=== PATIENT | female | born 1945 | race Caucasian/White ===

== ENCOUNTER 2024-01-22 19:11 | Observation (INO) | payer OTHER ==
[2024-01-22 20:13] LABS: Absolute Lymphocytes (CBC) 0.7 K/uL (0.7-4.9); Absolute Monocytes 0.7 K/uL (0.1-1.3); Absolute Neutrophil 10.2 K/uL (1.8-8.0); Basophils % 0.4 % (0-1.3); Eosinophils % 0.4 % (0-4.4); Hematocrit 32.7 % (36.0-45.0); Hemoglobin 10.7 g/dL (12.0-15.0); Lymphocytes % 6.3 % (15.3-44.8); MCHC 32.7 g/dL (32.0-36.0); MCV 91.9 fL (80-100); MPV 8.3 fL (7.6-11.3); Monocytes % 5.6 % (3.3-12.3); Neutrophils % 87.3 % (41.7-73.7); Platelets 169 thou/uL (152-406); RBC Red Blood Cell Count 3.56 M/uL (3.86-4.86); Red Cell Distribution Width 13.9 % (12.1-15.2)
[2024-01-22 20:20] LABS: Potassium 4.4 mEq/L (3.5-5.1); Sodium Level 140 mEq/L (136-145)
[2024-01-22 20:22] LABS: Anion Gap 7.4 mEq/L (5.0-15.0); Bicarbonate 28 mEq/L (21-32)
[2024-01-22 20:29] LABS: Alkaline Phosphatase 92 U/L (45-117)
[2024-01-22] MEDS ORDERED: NA CHLORIDE 0.9% 1,000 ML ONE (20:30)
[2024-01-22] MEDS ORDERED: ONDANSETRON 4 MG/2 ML VIAL ONE (20:30)
[2024-01-22] MEDS ORDERED: ACETAMINOPHEN 325 MG TABLET ONE (20:44)
[2024-01-22 21:33] LABS: ALT/SGPT 15 U/L (13-56); AST/SGOT 16 U/L (15-37); BUN Blood Urea Nitrogen 32 mg/dL (7-18); Bilirubin Total 0.3 mg/dL (0.2-1.0); Glomerular Filtration Rate 30 ml/min (=/>90); Glucose Level 118 mg/dL (74-106); Lipase 40 U/L (13-75); Protein, Total 7.3 g/dL (6.4-8.2)
[2024-01-22 21:34] LABS: Albumin 3.2 g/dL (3.4-5.0)
[2024-01-22 21:41] LABS: SARS-CoV-2 Antigen CONTROL BLUE LINE VIS/BG OK; SARS-CoV-2 Antigen Rapid Res Negative (Negative)
--- NOTE | 2024-01-23 00:52 | ER ---
Nurse's Notes [facility] Name: Fabby Graham Age: 78 yrs Sex: Female : 1945 Arrival Date: 01/22/2024 Time: 19:11 Bed 18 Private MD: Diagnosis: Vomiting;Diarrhea, unspecified;Acute kidney failure, unspecified Presentation: 01/21 19:25 Chief complaint: EMS states: 78 year old female coming from [facility] ha1 reports nausea, vomiting, and diarrhea. Symptoms started 45 minutes ago. Coronavirus screen: At this time, unable to obtain information related to travel outside the [place] Ebola Screen: No symptoms or risks identified at this time. Initial Sepsis Screen: Does the patient meet any 2 criteria? No. Patient's initial sepsis screen is negative. Does the patient have a suspected source of infection? No. Patient's initial sepsis screen is negative. Risk Assessment: Do you want to hurt yourself or someone else? Patient reports no desire to harm self or others. Onset of symptoms was January 22, 2024. 19:25 Method Of Arrival: EMS: [facility] ha1 19:25 Acuity: JESUSITA 3 ha1 Triage Assessment: 19:25 General: Appears comfortable, Behavior is calm, cooperative. Pain: Denies pain. Neuro: ha1 Level of Consciousness is awake, alert, obeys commands, Oriented to person. Cardiovascular: Capillary refill < 3 seconds Patient's skin is warm and dry. Respiratory: Airway is patent Respiratory effort is even, unlabored, Respiratory pattern is regular, symmetrical. GI: Abdomen is flat, non-distended, Bowel sounds present X 4 quads. Reports nausea, vomiting. : No signs and/or symptoms were reported regarding the genitourinary system. Derm: Skin is pink, warm \T\ dry. Musculoskeletal: Circulation, motion, and sensation intact. Range of motion: intact in all extremities. Historical: - Allergies: 19:29 No Known Allergies; ha1 - PMHx: 19:31 Dementia; ha1 20:30 Hypercholesterolemia; chronic kidney disease stage 3; Depressive disorder; Hypertensive ha1 disorder; Alzheimer's disease; - Immunization history:: Adult Immunizations unknown. - Infectious Disease History:: Denies. - Social history:: Smoking status: unknown. Screenin:[facility] Fall Risk Assessment (Adult) History of falling in the last 3 months, ha1 including since admission No falls in past 3 months (0 pts) Confusion or Disorientation Yes (5 pts) Intoxicated or Sedated No (0 pts) Impaired Gait No (0 pts) Mobility Assist Device Used Yes (1 pt) Altered Elimination Yes (1 pt) Score/Fall Risk Level 3 or more points = High Risk Oriented to surroundings, Maintained a safe environment, Educated pt \T\ family on fall prevention, incl call for assistance when getting out of bed, Hourly rounding (assess needs \T\ fall precautionary measures) done. Abuse screen: Denies threats or abuse. Denies injuries from another. Nutritional screening: No deficits noted. Tuberculosis screening: No symptoms or risk factors identified. Assessment: 19:25 Reassessment: SEE TRIAGE ASSESSMENT. ha1 20:55 Reassessment: Steven Dumont emergency contact [phone]. ha1 21:50 Reassessment: EYES CLOSED. Respiratory: Airway is patent Respiratory effort is even, ha1 unlabored, Respiratory pattern is regular, symmetrical. 22:50 Reassessment: EYES CLOSED. Respiratory: Airway is patent Respiratory effort is even, ha1 unlabored, Respiratory pattern is regular, symmetrical. 23:50 Reassessment: Patient and/or family updated on plan of care and expected duration. Pain ha1 level reassessed. 01/22 00:45 Reassessment: EYES CLOSED. Respiratory: Airway is patent Respiratory effort is even, ha1 unlabored, Respiratory pattern is regular, symmetrical. Vital Signs: 01/21 19:25 BP 95 / 81; Pulse 60; Resp 17 S; Temp 98.2(O); Pulse Ox 97% on R/A; Weight 43.09 kg; ha1 Height 4 ft. 11 in. ; 20:44 BP 97 / 44; Pulse 57; Resp 17; Temp 99.7(O); Pulse Ox 97% on R/A; ha1 21:40 BP 116 / 44; Pulse 55; Resp 17 S; Pulse Ox 97% on R/A; ha1 22:40 BP 116 / 56; Pulse 61; Resp 17 S; Pulse Ox 97% on R/A; ha1 23:49 BP 123 / 58; Pulse 57; Resp 17 S; Temp 97.6(T); Pulse Ox 96% on R/A; ha1 01/22 00:40 BP 151 / 54; Pulse 60; Resp 17 S; Pulse Ox 96% on R/A; ha1 02:00 BP 145 / 54; Pulse 59; Resp 17 S; Pulse Ox 93% on R/A; ha1 01/21 19:25 Body Mass Index 19.19 (43.09 kg, 149.86 cm) ha1 ED Course: 01/21 19:25 Patient arrived in ED. ha1 19:25 Ann Baptiste, RN is Primary Nurse. ha1 19:25 Patient has correct armband on for positive identification. Placed in gown. Bed in low ha1 position. Call light in reach. Side rails up X2. 19:25 Client placed on continuous cardiac and pulse oximetry monitoring. NIBP monitoring ha1 applied. 19:25 Arm band placed on right wrist. ha1 19:29 Triage completed. ha1 19:46 Asunc[facility]C [facility] kb 19:46 Galdino Polanco MD is Attending Physician. kb 20:02 CBC with Diff Sent. ha1 20:02 CMP Sent. ha1 20:02 Lipase Sent. ha1 20:30 Inserted saline lock: 22 gauge in right forearm, using aseptic technique. Blood oe collected. Flushed with 10 mL NS. 21:20 Door closed. Warm blanket given. Pillow given. ha1 21:24 SARS-COV-2 Antigen Rapid Sent. vk 21:24 Flu Sent. vk 21:24 COVID swab sent to lab. Flu and/or RSV swab sent to lab. vk 22:20 Abdomen In Process Unspecified. EDMS 01/22 00:23 Chest Single View XRAY In Process Unspecified. EDMS 00:51 Colin Carter MD is Hospitalizing Provider. kb 02:00 No provider procedures requiring assistance completed. ha1 02:00 Patient admitted, IV remains in place. ha1 02:00 Provided Education on: need for admit . ha1 03:00 Straight cath inserted, using sterile technique, 14 Fr. Specimen obtained. Returned ha1 joy urine. Patient tolerated well. Administered Medications: 01/21 20:20 Drug: NS 0.9% IV 1000 ml IV at 1 bolus Per protocol; 1000 mL bolus Route: IV; Rate: 1 ha1 bolus; Site: right forearm; 22:00 Follow up: Response: No adverse reaction; IV Status: Completed infusion; IV Intake: ha1 1000ml 20:20 Drug: Ondansetron IVP 4 mg IVP once; over 2 minutes Route: IVP; Site: right forearm; ha1 20:45 Follow up: Response: No adverse reaction ha1 20:51 Drug: Acetaminophen PO 650 mg PO once Route: PO; ha1 21:49 Follow up: Response: No adverse reaction; Temperature is decreased ha1 Medication: 01/22 02:00 VIS not applicable for this client. ha1 Intake: 01/21 22:00 IV: 1000ml; Total: 1000ml. ha1 Outcome: 01/22 00:51 Decision to Hospitalize by Provider. kb 02:00 Admitted to ER Hold. Please see [facility] for further documentation. ha1 02:00 Condition: stable 02:00 Instructed on the need for admit, 12:16 Patient left the ED. ld1 Signatures: Dispatcher [employer] EDAsuncion Appiah, AYDEEC TRACK LAYER-Milan Martin Lauren, SUNDAY RN 1 Ann Baptiste, SUNDAY RN 1 Juanita Bernal Corrections: (The following items were deleted from the chart) 01/21 22:18 22:18 In radiology for Abdomen Pelvis W Con+CT.RAD.SILVANO. EDNE EDMS 23:51 23:49 BP 123 / 58; Pulse 57bpm; Resp 17bpm; Spontaneous; Pulse Ox 96% RA; ha1 ha1 01/22 02:20 01/21 20:44 Temp 99.7F Oral; ha1 1 01/22 03:37 01/21 19:25 BP 95 / 81; Pulse 60bpm; Resp 17bpm; Spontaneous; Pulse Ox 97% RA; Temp ha1 98.2F Oral; 43.09 kg; Height 4 ft. 11 in.; BMI: 19.1; ha1
--- NOTE | 2024-01-23 00:52 | EDPHYS ---
Physician Documentation [facility] Name: Fabby Graham Age: 78 yrs Sex: Female : 1945 Arrival Date: 01/22/2024 Time: 19:11 Bed 18 Private MD: ED Physician Galdino Polanco HPI: 01/22 00:44 This 78 yrs old Female presents to ER via EMS with complaints of n/v/d. 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 Pt has no complaints. Pt is at baseline mentation per EMS, awake, alert and oriented to person only. . Historical: - Allergies: 01/21 19:29 No Known Allergies; ha1 - PMHx: 19:31 Dementia; ha1 20:30 Hypercholesterolemia; chronic kidney disease stage 3; Depressive disorder; Hypertensive ha1 disorder; Alzheimer's disease; - Immunization history:: Adult Immunizations unknown. - Infectious Disease History:: Denies. - Social history:: Smoking status: unknown. ROS: 01/22 00:43 Constitutional: As per HPI kb Exam: 00:43 Constitutional: This is a well developed, well nourished patient who is awake, alert, kb and in no acute distress. Head/Face: Normocephalic, atraumatic. ENT: Moist Mucous membranes Cardiovascular: Regular rate Respiratory: Respirations even and unlabored. No increased work of breathing. Talking in full sentences Abdomen/GI: Soft, non-tender. No distention Skin: Warm, dry with normal turgor. Normal color. MS/ Extremity: Pulses equal, no cyanosis. Neurovascular intact. Full, normal range of motion. 00:43 Neuro: Exam negative for acute changes, Orientation: to person, Vital Signs: 01/21 19:25 BP 95 / 81; Pulse 60; Resp 17 S; Temp 98.2(O); Pulse Ox 97% on R/A; Weight 43.09 kg; ha1 Height 4 ft. 11 in. ; 20:44 BP 97 / 44; Pulse 57; Resp 17; Temp 99.7(O); Pulse Ox 97% on R/A; ha1 21:40 BP 116 / 44; Pulse 55; Resp 17 S; Pulse Ox 97% on R/A; ha1 22:40 BP 116 / 56; Pulse 61; Resp 17 S; Pulse Ox 97% on R/A; ha1 23:49 BP 123 / 58; Pulse 57; Resp 17 S; Temp 97.6(T); Pulse Ox 96% on R/A; 1 01/22 00:40 BP 151 / 54; Pulse 60; Resp 17 S; Pulse Ox 96% on R/A; 1 02:00 BP 145 / 54; Pulse 59; Resp 17 S; Pulse Ox 93% on R/A; 1 01/21 19:25 Body Mass Index 19.19 (43.09 kg, 149.86 cm) [facility] MDM: 01/21 19:46 Patient medically screened. 01/22 00:49 Differential diagnosis: Nonspecific abd pain, viral gastroenteritis, dehydration, kb abnormal electrolytes, ARF. Data reviewed: vital signs, nurses notes. Consideration of Admission/Observation Patient was admitted/placed on observation. Escalation of care including admission/observation considered. Management of patient was discussed with the following: Hospitalist: Dr Carter accepts pt for admission. Historians other than the Patient: EMS: [email or web address]. Counseling: I had a detailed discussion with the patient and/or guardian regarding the historical points, exam findings, and any diagnostic results supporting the discharge/admit diagnosis, lab results, radiology results, the need for further work-up and treatment in the hospital. 01/21 19:46 Order name: CBC with Diff; Complete Time: 20:17 kb 01/21 19:46 Order name: CMP; Complete Time: 21:40 kb 01/21 19:46 Order name: Lipase; Complete Time: 21:40 kb 01/21 19:46 Order name: Urinalysis w/ reflexes kb 01/21 20:38 Order name: Flu; Complete Time: 21:46 kb 01/21 20:38 Order name: SARS-COV-2 Antigen Rapid; Complete Time: 21:42 kb 01/22 01:24 Order name: Creatine Phosphokinase EDSD 01/22 01:24 Order name: CBC with Automated Diff EDSD 01/22 01:24 Order name: CBC with Automated Diff EDSD 01/22 01:24 Order name: Comprehensive Metabolic Panel [facility] 01/22 01:24 Order name: Comprehensive Metabolic Panel [facility] 01/21 22:20 Order name: Abdomen EDMS 01/21 23:22 Order name: Chest Single View XRAY kb 01/21 19:46 Order name: IV Saline Lock; Complete Time: 20:02 kb 01/21 19:46 Order name: Labs collected and sent; Complete Time: 20:02 kb 01/21 23:37 Order name: PO challenge; Complete Time: 23:45 kb 01/21 23:37 Order name: Vital Signs; Complete Time: 23:49 kb Administered Medications: 01/21 20:20 Drug: NS 0.9% IV 1000 ml IV at 1 bolus Per protocol; 1000 mL bolus Route: IV; Rate: 1 ha1 bolus; Site: right forearm; 22:00 Follow up: Response: No adverse reaction; IV Status: Completed infusion; IV Intake: ha1 1000ml 20:20 Drug: Ondansetron IVP 4 mg IVP once; over 2 minutes Route: IVP; Site: right forearm; ha1 20:45 Follow up: Response: No adverse reaction ha1 20:51 Drug: Acetaminophen PO 650 mg PO once Route: PO; ha1 21:49 Follow up: Response: No adverse reaction; Temperature is decreased ha1 Disposition Summary: 01/23/24 00:51 Hospitalization Ordered Notes: Hospitalization Status: Observation kb Provider: Colin Carter Condition: Stable kb Problem: new kb Symptoms: are unchanged kb Bed/Room Type: Standard kb Location: Telemetry/MedSurg (observation)(01/23/24 11:28) bd Room Assignment: 222(01/23/24 11:28) bd Diagnosis - Vomiting kb - Diarrhea, unspecified kb - Acute kidney failure, unspecified kb Forms: - Medication Reconciliation Form kb - SBAR form kb - Leadership Thank You Letter kb Signatures: Dispatcher [employer] EDMS Asuncion Long, RISK CONSULTANT-C RISK CONSULTANT-Sherri Layne Shelby, RN RN ss Ann Baptiste RN RN ha1 Corrections: (The following items were deleted from the chart) 20:38 20:38 Influenza Screen (A \T\ B)+BA.LAB.BRZ ordered. EDMS EDMS 20:38 20:38 SARS-COV-2 Antigen Rapid+I.LAB.BRZ ordered. EDMS EDMS 22:18 19:47 Abdomen Pelvis W Con+CT.RAD.BRZ ordered. EDMS EDMS 01/22 02:07 00:51 Telemetry/MedSurg (observation) kb ss 00:51 kb ss 02:07 [facility] ER HOLD bd 02:07 ERHOLD- bd
--- NOTE | 2024-01-23 01:16 | P.HP ---
Certification for Inpatient Patient admitted to: Observation With expected LOS: <2 Midnights Patient will require the following post-hospital care: None Practitioner: I am a practitioner with admitting privileges, knowledge of patient current condition, hospital course, and medical plan of care. Services: Services provided to patient in accordance with Admission requirements found in Title 42 Section 412.3 of the Code of Federal Regulations Patient History Date of Service: 01/23/24 Reason for admission: Nausea vomiting History of Present Illness: 78-year-old female with past medical history of hypertension, dementia, CKD STAGE 3 but unknown basleine creatinine , HLD , [facility] resident at [facility] who was brought in from the [facility] today because of recurrent nausea vomiting. Patient is confused and only oriented to name calling. On arrival in the emergency room for further history was unable to be obtained from her. Vital signs shows mild elevated temp of 99, blood pressure was borderline low at 96/41 but nontachycardic. Chest x-ray shows mild atelectasis, CT of the abdomen and pelvics shows possible pneumonia at the right base but no other intra-abdominal pathology, urinalysis pending, CBC shows WBC of 11 with 87% neutrophilia, BMP shows elevation in creatinine of 1.7, no previous to compare. Urinalysis pending. Patient was given IV fluid bolus and blood pressure improved from systolic of 90 to 120. Patient has been admitted for acute renal failure Allergies No Known Allergies Allergy (Unverified 01/23/24 03:38) Home medications list reviewed: No - Past Medical/Surgical History Has patient received pneumonia vaccine in the past: No -: Hypertension -: Dementia -: CKD-3 -: HLD - Social History Smoking Status: Never smoker Smoking therapy provided: No Patient receptive to therapy: No Alcohol use: No CD- Drugs: No Place of Residence: Custodial Review of Systems is unable to be obtained (Dementia) Physical Examination - Physical Exam General: Alert, Oriented x1 HEENT: Atraumatic, Normocephalic, PERRLA Neck: Supple, 2+ carotid pulse no bruit, JVD not distended Respiratory: Clear to auscultation bilaterally, Normal air movement Cardiovascular: No edema, Regular rate/rhythm Gastrointestinal: Normal bowel sounds, Soft and benign, Non-distended, No ascites, No tenderness Integumentary: No rashes, No breakdown Neurological: Normal strength at 5/5 x4 extr, Sensation intact, Cranial nerves 3-12 intact, Dementia - Studies Laboratory Data (last 24 hrs) 01/22/24 01/22/24 20:03 20:03 WBC 11.70 H Hgb 10.7 L Hct 32.7 L Plt Count 169 Sodium 140 Potassium 4.4 BUN 32 H Creatinine 1.73 H Glucose 118 H Total Bilirubin 0.3 AST 16 ALT 15 Alkaline Phosphatase 92 Lipase 40 Microbiology Data (last 24 hrs): 01/22/24 21:14 Nasopharnyx Influenza Type A Antigen Screen - Final 01/22/24 21:14 Nasopharnyx Influenza Type B Antigen Screen - Final Assessment and Plan - Problems (Diagnosis) (1) Dementia Current Visit: Yes Status: Acute (2) Sepsis Current Visit: Yes Status: Acute (3) Acute renal failure Current Visit: Yes Status: Acute - Plan Impression Acute kidney injury Presumed UTI Septic shock Leukocytosis Dementia ckd-3 Plan Will admit patient to observation Start gentle IV fluid with NS Follow creatinine trend Since unknwn baseline cr , NH unable to provide , follow creatinine trend with hydration Hold lsinopril for now Start empirical antibiotics with cefepime Follow urinalysis Monitor blood pressure with IV fluid Ativan as needed agitation Resume home meds after med reconciliation Lovenox for DVT prophylaxis full code per [place] records Discharge Plan: Custodial Plan to discharge in: 48 Hours - Advance Directives Does patient have a Living Will: No Does patient have a Durable POA for Healthcare: No
[2024-01-23] MEDS ORDERED: ALBUTEROL 2.5 MG/3 ML NEB SOL NEB PRN (01:17)
[2024-01-23] MEDS ORDERED: MORPHINE 2 MG/ML SYR IV PRN (01:17)
[2024-01-23] MEDS ORDERED: ONDANSETRON 4 MG/2 ML VIAL IV PRN (01:17)
[2024-01-23] MEDS ORDERED: ACETAMINOPHEN 500 MG TAB PO PRN (01:17)
[2024-01-23] MEDS ORDERED: LORAZEPAM 0.5 MG TABLET PO PRN (01:19)
[2024-01-23] MEDS: NA CHLORIDE 0.9% 1,000 ML IV SCH (02:00)
[2024-01-23 03:36] VITALS: BMI 19.1
[2024-01-23] MEDS ORDERED: NA CHLORIDE 0.9% 1,000 ML ONE (04:11)
[2024-01-23 04:19] LABS: Specific Gravity 1.019 (1.005-1.030); Sqamous Epithelial <5 /HPF (None Seen); Urine Bacteria <20 /HPF (<20); Urine Bilirubin NEGATIVE (Negative); Urine Blood Negative (Negative); Urine Clarity Clear (Clear); Urine Color Yellow (Yellow); Urine Culture Reflex Order NOT NEEDED; Urine Glucose NEGATIVE (Negative); Urine Ketones NEGATIVE (Negative); Urine Microscopic Reflex YN ORDER UMIC; Urine Mucus Slight /HPF (None Seen); Urine Nitrite NEGATIVE (Negative); Urine Protein TRACE (Negative); Urine RBC None Seen /HPF (None Seen); Urine Urobilinogen Normal (Normal); Urine WBC <5 /HPF (<5); Urine pH 5.5 (5.0-7.0)
[2024-01-23] MEDS ORDERED: ASPIRIN 81 MG CHEWABLE TABLET ONE (08:59)
[2024-01-23] MEDS: ENOXAPARIN 30 MG/0.3 ML SQ SCH (09:00)
[2024-01-23] MEDS: DIVALPROEX NA 125 MG CAP PO SCH (09:00)
[2024-01-23] MEDS: MEMANTINE HCL 10 MG TABLET PO SCH (09:00)
[2024-01-23] MEDS: CEFEPIME 1 GM in NA CHLORIDE 0.9% 100 ML IV SCH (09:00)
[2024-01-23] MEDS ORDERED: ENOXAPARIN 30 MG/0.3 ML SQ ONE (09:00)
[2024-01-23] MEDS ORDERED: NA CHLORIDE 0.9% 100 ML ONE (09:00)
[2024-01-23] MEDS ORDERED: CEFEPIME 1 GM/VIAL ONE (09:00)
[2024-01-23] MEDS: FAMOTIDINE 20 MG TAB PO SCH (09:00)
[2024-01-23] MEDS: QUETIAPINE 25 MG TAB PO SCH (09:00)
[2024-01-23] MEDS ORDERED: DIVALPROEX DR 250 MG TAB PO ONE (09:00)
[2024-01-23] MEDS: ASPIRIN EC 81 MG TAB PO SCH (09:00)
[2024-01-23] MEDS ORDERED: LORAZEPAM 1 MG TABLET ONE (09:16)
[2024-01-23] MEDS: LORAZEPAM 1 MG TABLET PO PRN (09:21)
[2024-01-23 22:18] VITALS: O2SAT 94
[2024-01-24 06:42] LABS: Absolute Eosinophils 0.2 K/uL (0-0.5); Absolute Lymphocytes (CBC) 1.2 K/uL (0.7-4.9); Absolute Monocytes 0.8 K/uL (0.1-1.3); Absolute Neutrophil 4.3 K/uL (1.8-8.0); Basophils % 0.7 % (0-1.3); Eosinophils % 2.3 % (0-4.4); Hematocrit 33.2 % (36.0-45.0); Hemoglobin 10.6 g/dL (12.0-15.0); Lymphocytes % 19.2 % (15.3-44.8); MCH 29.7 pg (27.0-35.0); MCV 92.9 fL (80-100); MPV 8.6 fL (7.6-11.3); Monocytes % 11.9 % (3.3-12.3); Neutrophils % 65.9 % (41.7-73.7); Nucleated Red Blood Cells % 0.2 % (0-0); Platelets 131 thou/uL (152-406); RBC Red Blood Cell Count 3.57 M/uL (3.86-4.86); Red Cell Distribution Width 13.7 % (12.1-15.2)
[2024-01-24 06:57] LABS: AST/SGOT 11 U/L (15-37); Albumin 2.8 g/dL (3.4-5.0); Albumin/Globulin Ratio 0.7 (1.1-1.8); Alkaline Phosphatase 89 U/L (45-117); BUN Blood Urea Nitrogen 19 mg/dL (7-18); Bicarbonate 28 mEq/L (21-32); Bilirubin Total 0.4 mg/dL (0.2-1.0); Globulin 3.9 g/dL (2.3-3.5); Glomerular Filtration Rate 43 ml/min (=/>90); Glucose Level 72 mg/dL (74-106); Protein, Total 6.7 g/dL (6.4-8.2); Sodium Level 141 mEq/L (136-145)
[2024-01-24 06:58] LABS: ALT/SGPT < 14 U/L (13-56)
--- NOTE | 2024-01-24 10:01 | RAD REPORT ---
EXAM DESCRIPTION: RAD - Chest Single View - 01/23/2024 12:21 am CLINICAL HISTORY: 78 years Female MALAISE TECHNIQUE: One view of the chest. COMPARISON: No prior exams provided for comparison. FINDINGS: There is elevation of the left hemidiaphragm with left basilar atelectasis versus infiltra te. Increased interstitial markings in both lungs consistent with chronic lung disease. No pleural ef fusion or pneumothorax. Mild prominence of the cardiomediastinal silhouette with aortic atherosclerosis. No acute osseous les ion. IMPRESSION: Elevation of the left hemidiaphragm with left basilar atelectasis versus infiltrate. Chr onic lung disease. Electronically signed by: Cira Fernandez MD 01/23/2024 12:37 AM CDT RP Due to temporary technical issues with the PACS/Fluency reporting system, reports are being signed by the in house radiologist without review as a courtesy to ensure prompt reporting. The interpreting r adiologist is fully responsible for the content of the report.
--- NOTE | 2024-01-24 10:02 | RAD REPORT ---
EXAM DESCRIPTION: CT - Abdomen Pelvis Wo Contrast - 01/23/2024 6:51 am CLINICAL HISTORY: Abdominal pain. COMPARISON: None. TECHNIQUE: CT ABDOMEN PELVIS WITHOUT IV CONTRAST on 01/22/2024 7:46 PM CDT This exam was performed according to our departmental dose-optimization program, which includes autom ated exposure control, adjustment of the mA and/or kV according to patient size and/or use of iterati ve reconstruction technique. FINDINGS: There is minimal left basilar airspace disease. Abdomen: The liver is normal in appearance. There is no biliary dilatation. Gallbladder is normally d istended. There is a small hiatal hernia. The pancreas and spleen are normal in appearance. Both adre nal glands are lobular without a definite focal mass. Adrenal glands are mildly atrophic. Abdominal aorta is densely calcified without aneurysm. There is no free air. There is no retroperiton eal adenopathy. Pelvis: There is no bowel obstruction. Urinary bladder is unremarkable. There is no free fluid. Hyste rectomy was performed. Appendix is normal. Skeleton: There are no acute osseous findings. No suspicious bony lesions. IMPRESSION: No definite acute inflammatory process. Possible left basilar pneumonia. Electronically signed by: Chris Herrera MD 01/22/2024 11:06 PM CDT RP Due to temporary technical issues with the PACS/Fluency reporting system, reports are being signed by the in house radiologist without review as a courtesy to ensure prompt reporting. The interpreting r adiologist is fully responsible for the content of the report.
[2024-01-24 12:22] VITALS: BP 165/70; TEMP 98.4
--- NOTE | 2024-01-24 14:43 | P.DS ---
Admission Date: 01/23/24 Discharge Date: 01/24/24 Disposition: TRANSFER TO LONGTERM Discharge Condition: GOOD Reason for Admission: Nausea vomiting Brief History of Present Illness: 78-year-old female with past medical history of hypertension, dementia, CKD STAGE 3 but unknown basleine creatinine , HLD , assisted resident at [facility] who was brought in from the assisted today because of recurrent nausea vomiting. Patient is confused and only oriented to name calling. On arrival in the emergency room for further history was unable to be obtained from her. Vital signs shows mild elevated temp of 99, blood pressure was borderline low at 96/41 but nontachycardic. Chest x-ray shows mild atelectasis, CT of the abdomen and pelvics shows possible pneumonia at the right base but no other intra-abdominal pathology, urinalysis pending, CBC shows WBC of 11 with 87% neutrophilia, BMP shows elevation in creatinine of 1.7, no previous to compare. Urinalysis pending. Patient was given IV fluid bolus and blood pressure improved from systolic of 90 to 120. Patient has been admitted for acute renal failure Hospital Course: Pt is a 78yo female assisted resident with past medical history of hypertension, dementia, CKD STAGE 3 but unknown basleine creatinine, and HLD who presented with recurrent nausea and vomiting. Pt is only oriented to her name due to dementia. On arrival in the emergency room, vital signs showed mild elevated temp of 99, blood pressure was borderline low at 96/41 but non- tachycardic. Chest x-ray showed mild atelectasis, CT of the abdomen and pelvics showed left basilar pneumonia. Urinalysis was unremarkable. We admitted pt, gave IVF bolus and iv cefepime. Her BP improved and the nausea and vomiting resolved. KIM improved with IVf. We reduced dose of lisinopril to 10mg po daily and advised pt to take levaquin 500mg po daily for 6 more days. Pt was in NAD prior to discharge. Vital Signs/Physical Exam: Temp Pulse Resp BP Pulse Ox 98.4 F 58 16 165/70 H 97 01/24/24 12:00 01/24/24 12:00 01/24/24 12:00 01/24/24 12:00 01/24/24 12:00 Laboratory Data at Discharge: WBC 6.50 thou/uL (4.3-10.9) 01/24/24 06:14 Hgb 10.6 g/dL (12.0-15.0) L 01/24/24 06:14 Hct 33.2 % (36.0-45.0) L 01/24/24 06:14 Plt Count 131 thou/uL (152-406) L 01/24/24 06:14 Sodium 141 mEq/L (136-145) 01/24/24 06:14 Potassium 4.0 mEq/L (3.5-5.1) 01/24/24 06:14 BUN 19 mg/dL (7-18) H 01/24/24 06:14 Creatinine 1.29 mg/dL (0.55-1.02) H 01/24/24 06:14 Glucose 72 mg/dL (74-106) L 01/24/24 06:14 Total Bilirubin 0.4 mg/dL (0.2-1.0) 01/24/24 06:14 AST 11 U/L (15-37) L 01/24/24 06:14 ALT < 14 U/L (13-56) 01/24/24 06:14 Alkaline Phosphatase 89 U/L (45-117) 01/24/24 06:14 Lipase 40 U/L (13-75) 01/22/24 20:03 Home Medications: Divalproex Sodium 125 mg PO BID 01/23/24 Memantine HCl 5 mg PO BID 01/23/24 Quetiapine [Seroquel*] 25 mg PO BID 01/23/24 Lisinopril [Zestril] 10 mg PO DAILY 60 Days #60 tab 01/24/24 levoFLOXacin [Levaquin] 500 mg PO DAILY 6 Days #6 tab 01/24/24 New Medications: levoFLOXacin [Levaquin] 500 mg PO DAILY 6 Days #6 tab Lisinopril [Zestril] 10 mg PO DAILY 60 Days #60 tab Physician Discharge Instructions: Continue ad deuce activity as tolerated. Take levaquin 500mg po daily for 6 more days. Drink water at home. Take lisinopril 10mg po daily. Follow up with PCP within 1 - 2 weeks Diet: AHA Activity: Ad deuce Followup: Kavya Cee MD [Primary Care Provider] -
== END 2024-01-24 15:58 ==
LOC: ER 19:11 → ERHOLD 01-23 01:17 → 2ND 01-23 12:08
PROVIDERS: ADMIT Internal Medicine; ATTEND Hospitalist
DX: N17.9 Acute kidney failure, unspecified (principal); A41.9 Sepsis, unspecified organism; J98.11 Atelectasis; R11.2 Nausea with vomiting, unspecified; I12.9 Hypertensive chronic kidney disease with stage 1 through stage 4 chronic kidney disease, or unspecified chronic kidney disease; N18.30 Chronic kidney disease, stage 3 unspecified; F03.90 Unspecified dementia, unspecified severity, without behavioral disturbance, psychotic disturbance, mood disturbance, and anxiety; E78.5 Hyperlipidemia, unspecified; D72.829 Elevated white blood cell count, unspecified; Z11.52 Encounter for screening for COVID-19
CPT/HCPCS: 96361; 85025 ×2; 81001; 36415 ×2; 82550; 83690; 80053 ×2; 87804 ×2; 74176; 71045; 51702; 96374; 99285; 87811; J1650 ×2; J2405; J7030 ×5; J0692 ×2; G0378 ×4; Q9967